=== PATIENT | male | born 1980 | race Two or more races ===

== ENCOUNTER 2022-06-07 12:20 | Emergency (ER) | payer BC ==
[~2022-06-07] VITALS: Ht 180.3 cm; Wt 77.2 kg
[2022-06-07 12:27] VITALS: BP 140/60
[2022-06-07] MEDS ORDERED: KETOROLAC TROMETH 60MG/2ML VIAL IM ONE (13:30)
[2022-06-07] MEDS ORDERED: PRED20TA2 PO (13:37)
[2022-06-07] MEDS ORDERED: IBUP800T27 PO (13:37)
== END 2022-06-07 14:45 | disposition home or self-care (01) ==
LOC: ER 12:20
DX: S39.012A Strain of muscle, fascia and tendon of lower back, initial encounter (principal); M51.16 Intervertebral disc disorders with radiculopathy, lumbar region; X50.1XXA Overexertion from prolonged static or awkward postures, initial encounter; Y93.89 Activity, other specified; Y92.89 Other specified places as the place of occurrence of the external cause; Y99.8 Other external cause status
CPT/HCPCS: 72100; 96372; 99283; J1885